=== PATIENT | female | born 1980 | race Caucasian/White ===

== ENCOUNTER 2018-05-28 06:56 | Emergency (ER) | payer BC ==
[2018-05-28] MEDS: HYDROCODONE/APAP (5/325) TAB PO (07:26)
== END 2018-05-28 08:15 | disposition home or self-care (01) ==
LOC: FTE 06:56
DX: S40.212A Abrasion of left shoulder, initial encounter (principal); R07.89 Other chest pain; V49.40XA Driver injured in collision with unspecified motor vehicles in traffic accident, initial encounter
CPT/HCPCS: 71045; 81025; 93005; 99284-25

== ENCOUNTER 2018-06-05 12:38 | Emergency (ER) | payer BC ==
[2018-06-05] MEDS: HYDROmorphONE 1 MG/ML SYG IV (13:44)
[2018-06-05] MEDS: ONDANSETRON 4 MG INJ IV (13:44)
[2018-06-05 14:05] LABS: ANION GAP 12 (8-16); BLOOD UREA NITROGEN 12 mg/dl (7-20); CALCIUM 8.9 mg/dl (8.4-10.2); CARBON DIOXIDE 25 mmol/L (21-31); CHLORIDE 108 mmol/L (97-110); CREATININE 0.64 mg/dl (0.44-1.00); GLUCOSE 93 mg/dl (70-220); POTASSIUM 3.9 mmol/L (3.5-5.1); SODIUM 141 mmol/L (135-144)
[2018-06-05 14:17] LABS: TROPONIN-I < 0.012 ng/ml (0.000-0.120)
[2018-06-05] MEDS: SOD CHLORIDE 0.9% 100 ML (14:54)
[2018-06-05] MEDS: IOHEXOL 100 ML (14:54)
== END 2018-06-05 16:02 | disposition home or self-care (01) ==
LOC: E/R 12:38
DX: R07.89 Other chest pain (principal)
CPT/HCPCS: 36415; 71275; 80048; 81025; 84484; 93005; 96374; 96375; 99285-25